=== PATIENT | male | born 2000 | race American Indian/Alaskan Native ===

== ENCOUNTER 2021-08-03 16:35 | Emergency (ER) | payer OTHER ==
[~2021-08-03] VITALS: Ht 175.3 cm; Wt 90.7 kg
[2021-08-03] MEDS ORDERED: MELOXICAM15 MG PO (17:53)
[2021-08-03] MEDS ORDERED: NEURONTIN300 MG PO (17:53)
[2021-08-03] MEDS ORDERED: PROZAC40 MG PO (17:53)
[2021-08-03] MEDS ORDERED: BUSPIRONE HCL5 MG PO (17:54)
== END 2021-08-03 19:29 | disposition home or self-care (01) ==
LOC: ED 16:35
DX: S30.0XXA Contusion of lower back and pelvis, initial encounter (principal); V00.222A Sledder colliding with stationary object, initial encounter; Z79.899 Other long term (current) drug therapy
CPT/HCPCS: 72220; 99283-25